=== PATIENT | male | born 1970 | race Two or more races ===

== ENCOUNTER 2016-05-11 00:05 | Emergency (ER) | payer OTHER ==
[~2016-05-11] VITALS: Ht 177.8 cm; Wt 90.7 kg
[~2016-05-11 00:05] MED LIST: ALBU8.5H6 IH; AMOX500T PO; DIPH25CA58 PO
[2016-05-11 00:32] VITALS: BP 161/97
[2016-05-11] MEDS ORDERED: HYDR-971 PO (00:57)
[2016-05-11] MEDS ORDERED: AMOX500C PO (00:57)
--- NOTE | 2016-05-11 00:57 | PHYS DOC ---
Past Medical History Past Medical History: High Cholesterol, Other Additional Past Medical Histor: boarderline diabetic Past Surgical History: Other Additional Past Surgical Histo: hernia repair Alcohol Use: Occasionally Drug Use: None Adult General Chief Complaint Chief Complaint: DENTAL PROBLEM HPI HPI Patient is a 46 year old male presents emergency room tonight with complaint of ongoing dental pain on both sides of his mouth, primarily to his right lower jaw. Patient saw dentist approximately one month ago. He was prescribed amoxicillin. He was advised to follow-up with her oral surgeon to extract his tooth is the dentist that he saw also that he does not extracted. His fevers or chills. He denies myalgias or arthralgias. Review of Systems Review of Systems Constitutional: Denies fever or chills [] Eyes: Denies change in visual acuity, redness, or eye pain [] HENT: Denies nasal congestion or sore throat [] Respiratory: Denies cough or shortness of breath [] Cardiovascular: No additional information not addressed in HPI [] GI: Denies abdominal pain, nausea, vomiting, bloody stools or diarrhea [] : Denies dysuria or hematuria [] Musculoskeletal: Denies back pain or joint pain [] Integument: Denies rash or skin lesions [] Neurologic: Denies headache, focal weakness or sensory changes [] Endocrine: Denies polyuria or polydipsia [] Allergies Allergies Allergies Coded Allergies Type Severity Reaction Last Updated Verified No Known Drug Allergies 02/23/13 No Physical Exam Physical Exam Constitutional: Well developed, well nourished, mild distress, non-toxic appearance. HENT: Normocephalic, atraumatic, bilateral external ears normal, oropharynx moist, no oral exudates, nose normal. There is no trismus. There is widespread dental caries and very stages of decay. Right mandibular second molar is the posterior third of the tooth decayed into the pulp. There is no active purulent drainage. There is no adjacent gingival abscess Eyes: PERRLA, EOMI, conjunctiva normal, no discharge. [] Neck: Normal range of motion, no tenderness, supple, no stridor. Cardiovascular:Heart rate regular rhythm, no murmur [] Lungs & Thorax: Bilateral breath sounds clear to auscultation [] Abdomen: Bowel sounds normal, soft, no tenderness, no masses, no pulsatile masses. [] Skin: Warm, dry, no erythema, no rash. [] Back: No tenderness, no CVA tenderness. [] Extremities: No tenderness, no cyanosis, no clubbing, ROM intact, no edema. [] Neurologic: Alert and oriented X 3, normal motor function, normal sensory function, no focal deficits noted. [] Psychologic: Affect normal, judgement normal, mood normal. [] Current Patient Data Vital Signs Vital Signs Date Time Temp Pulse Resp B/P Pulse Ox O2 Delivery O2 Flow Rate FiO2 05/11/16 00:32 97.9 82 18 95 Room Air 97.9 EKG EKG [] Radiology/Procedures Radiology/Procedures [] Course & Med Decision Making Course & Med Decision Making Pertinent Labs and Imaging studies reviewed. (See chart for details) [] Dragon Disclaimer Dragon Disclaimer This electronic medical record was generated, in whole or in part, using a voice recognition dictation system. Departure Departure Impression: Primary Impression: Dental caries Disposition: HOME, SELF-CARE Condition: GOOD Referrals: NO PCP (PCP) Patient Instructions: Dental Caries-Brief Additional Instructions: 1. Take the medication as prescribed. 2. Review the discharge instructions provided for self-care and reasons to return to the emergency department. 3. Use the dental resource sheet provided for assistance in finding a dentist that pulls teeth or oral surgeon. Scripts Hydrocodone/Apap 5-325 ([place] 5-325 Tablet)1 Each Tablet1 Tab PO PRN Q6HRS PRN PAIN #15 TAB Prov:KARTIK PAVON 05/11/16 Amoxicillin 500 Mg [id number] Mg PO TID #30 CAP Prov:KARTIK PAVON 05/11/16 KARTIK PAVON May 11, 2016 00:57
== END 2016-05-11 01:04 | disposition home or self-care (01) ==
LOC: ER 00:05
DX: K02.9 Dental caries, unspecified (principal); E78.00 Pure hypercholesterolemia, unspecified
CPT/HCPCS: 99283